=== PATIENT | female | born 1975 | race Caucasian/White ===

== ENCOUNTER → 2018-01-14 | Outpatient (CLI) | payer OTHER ==
--- NOTE | 2018-01-14 13:49 | US ---
EXAMINATION TYPE: US transvaginal DATE OF EXAM: 01/14/2018 COMPARISON: US 2015 CLINICAL HISTORY: N92.1 MENORRHAGIA WITH IRREG CYCLES. Irregular heavy painful cycles x 1 year, gravi da 3, para 2, miscarriage 1 TECHNIQUE: Transvaginal exam only per ordering physician. Date of LMP: 01/04/2018 EXAM MEASUREMENTS: Uterus: 9.1 x 4.2 x 4.8 cm Endometrial Stripe: 0.7 cm Right Ovary: not seen Left Ovary: not seen 1. Uterus: anteverted, heterogeneous with 1.2 x 0.8 x 1.2cm hypoechoic lesion posterior myometrium, probable fibroid 2. Endometrium: Within normal limits for patient's LMP 3. Right Ovary: not seen due to overlying peristalsing bowel 4. Left Ovary: not seen due to overlying bowel gas 5. Bilateral Adnexa: wnl 6. Posterior cul-de-sac: wnl Heterogeneous anteverted uterus with 1.2 cm lower body posterior subserosal hypoechoic lesion felt to reflect fibroid. IMPRESSION: Small 1.2 cm posterior peripheral fibroid.
== END ==
LOC: RADUSWWP 09:28
PROVIDERS: ATTEND Obstetrics & Gynecology
DX: D25.9 Leiomyoma of uterus, unspecified (principal)
CPT/HCPCS: 76830

== ENCOUNTER → 2018-02-04 | Outpatient (CLI) | payer OTHER ==
--- NOTE | 2018-02-09 14:16 | USB ---
Reason for exam: clinical finding. History: Family history of breast cancer in paternal grandmother at age 50. Benign stereotactic core biopsy of the left breast, 2016. Physical Findings: Nurse Summary: bilateral nodularity, all soft, movable (nurse ts). US Breast RT Right complete breast ultrasound includes all four quadrants, the retroareolar region and axilla. Finding demonstrates no cystic or solid lesion seen. These results were verbally communicated with the patient and result sheet given to the patient on 02/05/18. ASSESSMENT: Negative, BI-RAD 1 RECOMMENDATION: Routine screening mammogram of both breasts in 6 months. Back on schedule.
== END | disposition home or self-care (01) ==
LOC: RADUSWWP 08:55
PROVIDERS: ATTEND Obstetrics & Gynecology
DX: R92.8 Other abnormal and inconclusive findings on diagnostic imaging of breast (principal)

== ENCOUNTER → 2019-01-12 | Outpatient (CLI) | payer OTHER ==
--- NOTE | 2019-01-13 11:27 | MM ---
Reason for exam: screening (asymptomatic). Last mammogram was performed 1 year and 7 months ago. History: Family history of breast cancer in paternal grandmother at age 50. Benign stereotactic core biopsy of the left breast, 2016. Physical Findings: A clinical breast exam by your physician is recommended on an annual basis and results should be correlated with mammographic findings. MG 3D Screening Mammo W/Cad Bilateral CC and MLO view(s) were taken. Prior study comparison: June 25, 2017, mammogram. June 23, 2017, mammogram. The breast tissue is heterogeneously dense. This may lower the sensitivity of mammography. Finding: There is an questionable indistinct oval mass in the lower outer quadrant, anterior, subareolar position of the right breast. Previous mammotome biopsy in the left breast x 3. There is a chronic nodularity in the left breast. ASSESSMENT: Incomplete: need additional imaging evaluation, BI-RAD 0 RECOMMENDATION: Special view mammogram of the right breast. If lesion persists on supplemental views, image directed ultrasound is recommended. [facility] will attempt to contact patient to return for supplemental views and ultrasound if indicated.
== END | disposition home or self-care (01) ==
LOC: RADMAMWWP 11:12
PROVIDERS: ATTEND Obstetrics & Gynecology
DX: Z12.31 Encounter for screening mammogram for malignant neoplasm of breast (principal)
CPT/HCPCS: 77063; 77067

== ENCOUNTER → 2019-01-21 | Outpatient (CLI) | payer OTHER ==
--- NOTE | 2019-01-22 10:12 | MM ---
Reason for exam: additional evaluation requested from abnormal screening. Last mammogram was performed less than 1 month ago. History: Family history of breast cancer in paternal grandmother at age 50. Benign stereotactic core biopsy of the left breast, 2016. Physical Findings: Nurse did not find any significant physical abnormalities on exam. MG 3D Work Up W/Cad RT CC and spot compression LM view(s) were taken of the right breast. Prior study comparison: January 12, 2019, bilateral MG 3d screening mammo w/cad. June 25, 2017, mammogram. Nodular density persists. Ultrasound recommended. These results were verbally communicated with the patient and result sheet given to the patient on 01/21/19. ASSESSMENT: Incomplete: need additional imaging evaluation, BI-RAD 0 RECOMMENDATION: Ultrasound of the right breast.
--- NOTE | 2019-01-22 10:15 | USB ---
Reason for exam: additional evaluation requested from abnormal screening. History: Family history of breast cancer in paternal grandmother at age 50. Cyst aspiration of the left breast, 2016. Benign stereotactic core biopsy of the left breast, 2016. US Breast Workup Limited RT ight limited breast ultrasound including focal area of concern, retroareolar and axilla demonstrates a 12 x 5 x 8mm lobular, cystic cluster at 9 o'clock, a 7 x 2 x 7mm oval, mixed, hypoechoic lesion at 11 o'clock for which a biopsy is recommended and a 7 x 4 x 6mm oval, solid, hypoechoic lesion at the posterior nipple for which a biopsy is recommended. These results were verbally communicated with the patient and result sheet given to the patient on 01/21/19. ASSESSMENT: Suspicious, BI-RAD 4 RECOMMENDATION: Ultrasound core biopsy of the right breast. Called Dr. Gil's office with mammographic findings and has scheduled an appointment for the patient for 02/24/19 at 3:[address] Michel. Biopsy scheduled for 02/17/19 at 2:00. PRELIMINARY REPORT CALLED AND FAXED TO DR. MICHEL ON 01/22/19.
== END | disposition home or self-care (01) ==
LOC: RADMAMWWP 14:56
PROVIDERS: ATTEND Obstetrics & Gynecology
DX: R92.8 Other abnormal and inconclusive findings on diagnostic imaging of breast (principal); Z80.3 Family history of malignant neoplasm of breast
CPT/HCPCS: 77061; 77065

== ENCOUNTER → 2019-02-11 | Day surgery (SDC) | payer OTHER ==
[2019-02-11 11:39] VITALS: RESP 12; TEMP 98.4
[2019-02-11 12:55] VITALS: BP 128/85; PULSE 80
--- NOTE | 2019-02-11 13:14 | USB ---
EXAMINATION TYPE: US biopsy breast add'l VAD RT, US biopsy breast VAD RT, MG diagnostic mammo RT wo CAD DATE OF EXAM: 02/11/2019 CLINICAL HISTORY: R92.8 ABNORMAL MAMMOGRAM. TECHNIQUE: Ultrasound guided core biopsy of right breast at the 11:00 position and retroareolar regions . COMPARISON: NONE FINDINGS: The procedure of ultrasound guided core biopsy was explained to the patient. Benefits, alternatives, and risks were discussed. An informed consent was then obtained. The patient was placed in supine positioning for imaging and for the procedure. The overlying skin was prepped and draped in usual sterile fashion. Lidocaine buffered with bicarbonate was used as anesthetic into the skin and subcutaneous tissue up to area of concern in the right breast at the 11:00 position and retroareolar regions. Under ultrasound guidance, a 12-gauge vacuum assisted biopsy gun device was used to obtain 3 core samples from each site. Following this, a biopsy clip was left in each lesion. The patient tolerated the procedure well without any immediate complication. The patient was kept in the radiology department for short stay after the procedure and then discharged home in stable condition. IMPRESSION: Successful, uncomplicated ultrasound guided core biopsy of area of concern in the right breast at the 11:00 position and retroareolar regions, full pathology results to follow. Pathology Results: High Risk A. RIGHT BREAST, ELEVEN O'CLOCK, ULTRASOUND GUIDED CORE BIOPSY: Fibrocystic changes including cysts, fibrosis and apocrine metaplasia. B. RIGHT BREAST, POSTERIOR NIPPLE, CORE BIOPSY: Proliferative fibrocystic changes including radial scar/complex sclerosing lesion, moderate to florid usual type ductal hyperplasia and fibrosis. Recommendation Surgical consult of the right breast. KIRT
== END ==
LOC: RADUSWWP 11:18
PROVIDERS: ATTEND Surgery
DX: N60.11 Diffuse cystic mastopathy of right breast (principal); N60.81 Other benign mammary dysplasias of right breast
CPT/HCPCS: 88305; 77065; 19083; 19084; A4648; J2001

== ENCOUNTER 2019-04-09 07:50 | Day surgery (SDC) | payer OTHER ==
[2019-04-07 08:43] VITALS: BMI 28.3
[~2019-04-09 07:50] MED LIST: DEXAMETHASONE SOD PHOSPHATE 10 MG/ML 1 ML VIAL IV ONE; HEPARIN SODIUM,PORCINE 5,000 UNIT/ML 1 ML VIAL SQ ONE; HYDROmorphone 0.5 MG/0.5 ML SYRINGE IVP PRN; LACTATED RINGERS 1,000 ML IV SCH; MIDAZOLAM 2 MG/2 ML VIAL IV PRN; ONDANSETRON 4 MG/2 ML VIAL IVP ONE; Pre Op ABX Message 1 EACH MISC MISCELLANE ONE; SCOPOLAMINE 1.5MG/72HR PATCH TRANSDERM ONE
[2019-04-09 08:19] VITALS: RESP 16
--- NOTE | 2019-04-09 09:11 | P.GSHP ---
History of Present Illness H&P Date: 04/09/19 Chief Complaint: Abnormal right mammogram 43-year-old female known to our service. Please refer to recent H&P. Underwent recent ultrasound core biopsy of 2 separate lesions right breast. The one beneath the nipple showed radial scar/high risk lesion. Here today for wire localization biopsy. Past Medical History Past Medical History: GERD/Reflux Additional Past Medical History / Comment(s): MIGRAINE HEADACHE , GESTATIONAL DIABETES History of Any Multi-Drug Resistant Organisms: None Reported Past Surgical History: Breast Surgery, Orthopedic Surgery Additional Past Surgical History / Comment(s): left breast biopsy 3 sites, LEFT ARM SURGERY, Past Anesthesia/Blood Transfusion Reactions: Motion Sickness, Postoperative Nausea & Vomiting (PONV) Smoking Status: Former smoker - Past Family History Father Family Medical History: Cancer Additional Family Medical History / Comment(s): PROSTATE CANCER Mother Family Medical History: Cancer Medications and Allergies Home Medications Medication Instructions Recorded Confirmed Type ALPRAZolam [Xanax] 0.5 mg PO Q8H PRN 01/26/19 04/07/19 History Ibuprofen [Motrin] 400 mg PO DAILY PRN 01/26/19 04/07/19 History Allergies Allergy/AdvReac Type Severity Reaction Status Date / Time adhesive tape Allergy Itching Verified 04/09/19 08:13 AND REDNESS cephalexin [From Keflex] Allergy Swelling Verified 04/09/19 08:14 Penicillins Allergy Rash/Hives Verified 04/09/19 08:13 Surgical - Exam Vital Signs Temp Pulse Resp BP Pulse Ox 97.8 F 92 16 137/66 97 04/09/19 08:17 04/09/19 08:17 04/09/19 08:17 04/09/19 08:17 04/09/19 08:17 Physical exam: General: Well-developed, well-nourished HEENT: Normocephalic, sclerae nonicteric Right breast: No masses, no adenopathy Left breast: No masses, no adenopathy Abdomen: Nontender, nondistended Extremities: No edema Neuro: Alert and oriented Assessment and Plan (1) Abnormality of right breast on screening mammogram Narrative/Plan: Will proceed with wire localization biopsy right breast high risk lesion. Risks of bleeding, infection, scarring, numbness, dimpling reviewed. She understands and wishes to proceed. Current Visit: Yes Status: Acute Code(s): R92.8 - OTH ABN AND INCONCLUSIVE FINDINGS ON DX IMAGING OF BREAST SNOMED Code(s): 557137744
[2019-04-09] MEDS ORDERED: LIDOCAINE 1% INJ 10MG/ML (20 ML MDV) SQ ONE (09:32)
[2019-04-09] MEDS ORDERED: DEXAMETHASONE SOD PHOS (MDV) 100 MG/10 ML VIAL ONE (11:35)
[2019-04-09] MEDS ORDERED: MIDAZOLAM 2 MG/2 ML VIAL ONE (11:35)
[2019-04-09] MEDS ORDERED: LIDOCAINE 1% INJ 10MG/ML (20 ML MDV) ONE (11:35)
[2019-04-09] MEDS ORDERED: ONDANSETRON 4 MG/2 ML VIAL ONE (11:35)
[2019-04-09] MEDS ORDERED: KETAMINE 10 MG/ML 20 ML VIAL ONE (11:35)
[2019-04-09] MEDS ORDERED: fentaNYL (PF) 50 MCG/ML 2 ML AMP ONE (11:35)
[2019-04-09] MEDS ORDERED: PROPOFOL 10 MG/ML 20 ML VIAL IV ONE (11:35)
[2019-04-09] MEDS ORDERED: SODIUM CHLORIDE 0.9% 100 ML with CLINDAMYCIN 600 MG IV ONE ×2 (12:06)
[2019-04-09] MEDS ORDERED: BUPIVACAINE (PF) 0.25% 30 ML VIAL SQ ONE ×2 (12:13→12:27)
[2019-04-09] MEDS ORDERED: HYDROcodone/APAP 5-325MG 1 EACH TAB PO PRN (12:34)
[2019-04-09] MEDS ORDERED: NALOXONE 0.4 MG/ML 1 ML VIAL IV PRN (12:34)
--- NOTE | 2019-04-09 12:36 | P.OP ---
Date of Procedure: 04/09/19 Procedure(s) Performed: PREOPERATIVE DIAGNOSIS: Abnormal right mammogram POSTOPERATIVE DIAGNOSIS: Same PROCEDURE: Right Breast wire localization biopsy SURGEON: Marilu EBL: Minimal ANESTHESIA: Sedation plus local COMPLICATIONS: None OPERATIVE PROCEDURE: Patient was placed on the operating room table in the s upine position. The patient's breast was prepped and draped in usual sterile fashion. A curvilinear incision was made adjacent to the wire entrance site along the areola between 8 and 10:00. I followed the wire down into the breast tissue. The breast tissue around the tip of the wire was fully excised using electrocautery. The specimen was sent for specimen radiogram. The clip was present within the specimen. The subcutaneous tissues were inspected. No bleeding was seen. The subcutaneous tissues were closed using 3-0 Vicryl sutures. The skin was closed using a running 4-0 Monocryl stitch. Skin glue and sterile dressings were applied. DISPOSITION: Stable to recovery room
[2019-04-09 12:54] VITALS: TEMP 97.4
--- NOTE | 2019-04-09 13:15 | MM ---
EXAM: Needle localization with wire placement. CLINICAL HISTORY: High risk lesion on biopsy February 11, 2019 radial scar in the right breast TECHNIQUE: Needle localization with wire placement and surgical excision of area of concern in the right breast. COMPARISON: Prior mammogram and ultrasound February 11, 2019. FINDINGS: The procedure of needle localization with wire placement and than surgical excision was explained to the patient. Benefits, alternatives, and risks were discussed. An informed consent was then obtained. Case is reviewed prior to procedure, more anterior clip corresponds to the area of concern near the nipple. The shortest pathway for procedure was chosen. Shortest pathway was lateral approach. The overlying skin was prepped and draped in usual sterile fashion. Lidocaine buffered with bicarbonate was used as anesthetic into the skin and subcutaneous tissue up to the level of area of concern. A 5 cm needle was used. It was placed via a lateral approach under mammographic guidance. Subsequent 90 degrees mammogram show the needle to be in satisfactory position relative to the targeted area. At this point, wire was placed and the needle was withdrawn. The wire was fixed to patient's skin. Images were marked for surgeon. The patient tolerated the procedure well without any immediate complication. The patient was kept in the radiology department for short stay after the procedure and then taken to surgery for surgical excision. Targeted biopsy clip and wire are identified in specimen mammogram. The patient was kept in hospital for short stay after the procedure and then discharged home in stable condition. IMPRESSION: Successful, uncomplicated needle localization with wire placement and surgical excision of targeted biopsy clip in the right breast, full pathology results to follow. Pathology Results: Benign RIGHT BREAST, NEEDLE LOCALIZATION BIOPSY: Benign breast parechyma with fibrocystic spectrum changes and apocrine metaplasia. Recommendation Follow up mammogram of the right breast in 6 months. Radial scar may have been entirely excised on biopsy. MTDD
[2019-04-09] MEDS ORDERED: ONDANSETRON 4 MG/2 ML VIAL IVP ONE ×2 (13:37→13:38)
[2019-04-09] MEDS ORDERED: diphenhydrAMINE 50 MG/ML 1 ML VIAL IVP ONE (14:07)
[2019-04-09 14:28] VITALS: BP 106/67; PULSE 56
== END 2019-04-09 15:18 | disposition home or self-care (01) ==
LOC: OR 07:50
PROVIDERS: ATTEND Surgery
DX: N60.11 Diffuse cystic mastopathy of right breast (principal); N60.81 Other benign mammary dysplasias of right breast; K21.9 Gastro-esophageal reflux disease without esophagitis; G43.909 Migraine, unspecified, not intractable, without status migrainosus; F41.9 Anxiety disorder, unspecified; Z86.32 Personal history of gestational diabetes; Z98.890 Other specified postprocedural states; Z87.898 Personal history of other specified conditions; Z91.89 Other specified personal risk factors, not elsewhere classified; Z87.891 Personal history of nicotine dependence; Z91.048 Other nonmedicinal substance allergy status; Z88.1 Allergy status to other antibiotic agents; Z88.0 Allergy status to penicillin; Z79.899 Other long term (current) drug therapy; Z80.42 Family history of malignant neoplasm of prostate; Z80.9 Family history of malignant neoplasm, unspecified
CPT/HCPCS: 81025; 88307; 76098; 19281; 19125; J2250; J1200; J1644; J2405; J2001; J3010; J1100; J2704; J1170

== ENCOUNTER → 2019-10-22 | Outpatient (CLI) | payer OTHER ==
--- NOTE | 2019-10-22 11:51 | MM ---
Reason for exam: follow-up at short interval from prior study. Last mammogram was performed 8 months ago. History: Patient has history of high-risk lesion on a previous biopsy at age 43. Family history of breast cancer in paternal grandmother at age 50. Benign MG pre op needle loc RT of the right breast, April 09, 2019. High risk US biopsy breast VAD RT of the right breast, February 11, 2019. High risk US biopsy breast add'l VAD RT of the right breast, February 11, 2019. Cyst aspiration of the left breast, 2016. Benign stereotactic core biopsy of the left breast, 2016. Took hormonal contraceptives beginning at age 30. Physical Findings: Nurse did not find any significant physical abnormalities on exam. MG 3D Diag Mammo W/Cad RT CC and MLO view(s) were taken of the right breast. Prior study comparison: February 11, 2019, right breast MG diagnostic mammo RT wo CAD. January 21, 2019, right breast MG 3d work up w/cad RT. There are scattered fibroglandular densities. Previous mammotome biopsy in the right breast. No significant new findings when compared with previous films. These results were verbally communicated with the patient and result sheet given to the patient on 10/22/19. ASSESSMENT: Benign, BI-RAD 2 RECOMMENDATION: Return to routine screening mammogram schedule for both breasts.
== END | disposition home or self-care (01) ==
LOC: RADMAMWWP 10:48
PROVIDERS: ATTEND Surgery
DX: R92.8 Other abnormal and inconclusive findings on diagnostic imaging of breast (principal)
CPT/HCPCS: 77061; 77065

== ENCOUNTER → 2020-03-21 | Outpatient (CLI) | payer OTHER ==
--- NOTE | 2020-03-22 11:56 | MM ---
Reason for exam: screening (asymptomatic). Last mammogram was performed 5 months ago. History: Patient has history of high-risk lesion on a previous biopsy at age 43. Family history of breast cancer in paternal grandmother at age 50. Benign MG pre op needle loc RT of the right breast, April 09, 2019. High risk US biopsy breast VAD RT of the right breast, February 11, 2019. High risk US biopsy breast add'l VAD RT of the right breast, February 11, 2019. Cyst aspiration of the left breast, 2016. Benign stereotactic core biopsy of the left breast, 2016. Took hormonal contraceptives beginning at age 30. Physical Findings: A clinical breast exam by your physician is recommended on an annual basis and results should be correlated with mammographic findings. MG 3D Screening Mammo W/Cad Bilateral CC and MLO view(s) were taken. Prior study comparison: October 22, 2019, right breast MG 3d diag mammo w/cad RT. February 11, 2019, right breast MG diagnostic mammo RT wo CAD. The breast tissue is heterogeneously dense. This may lower the sensitivity of mammography. Previous mammotome biopsy in the right breast. There is chronic nodularity bilaterally. There is no dominant lesion. No significant changes when compared with prior studies. ASSESSMENT: Benign, BI-RAD 2 RECOMMENDATION: Routine screening mammogram of both breasts in 1 year.
== END | disposition home or self-care (01) ==
LOC: RADMAMWWP 14:26
PROVIDERS: ATTEND Obstetrics & Gynecology
DX: Z12.31 Encounter for screening mammogram for malignant neoplasm of breast (principal)
CPT/HCPCS: 77063; 77067

== ENCOUNTER → 2021-02-07 | Outpatient (CLI) | payer OTHER ==
--- NOTE | 2021-02-07 12:34 | US ---
EXAMINATION TYPE: US pelvis complete transvag DATE OF EXAM: 02/07/2021 COMPARISON: 01/14/2018 CLINICAL HISTORY: 45-year-old female N93.8 abnormal uterine and vaginal bleeding. Irregular bleeding TECHNIQUE: Transvaginal (TV) and Transabdominal (TA) . Transabdominal sonographic images of the pel vis were acquired. Transvaginal sonographic images were medically necessary to better assess the fol lowing anatomy: Endometrium Date of LMP: 01/29/2021, FINDINGS: EXAM MEASUREMENTS: Uterus: 8.1 x 5.0 x 4.4 cm Endometrial Stripe: 0.2 cm Right Ovary: 2.2 x 1.5 x 1.4 cm Left Ovary: 2.7 x 1.6 x 2.3 cm 1. Uterus: Anteverted. The myometrium is heterogeneous. Posterior body fibroid measuring 1.4 x 1.1 x 1.3 cm appears slightly subserosal. Subtle 1.2 cm hypoechoic area along the anterior uterine body/ lower uterine segment appears primarily intramural with a small subserosal component. Cervical naboth ildefonso cyst measures up to 1.2 cm. 2. Endometrium: wnl 3. Right Ovary: wnl 4. Left Ovary: wnl 5. Bilateral Adnexa: no free fluid 6. Posterior cul-de-sac: no free fluid IMPRESSION: 1. Thin endometrial stripe at 2 mm. 2. A couple uterine fibroids with subserosal components measuring 1.4 cm posteriorly and 1.2 cm anter iorly.
== END | disposition home or self-care (01) ==
LOC: RADUSWWP 09:22
PROVIDERS: ATTEND Obstetrics & Gynecology
DX: D25.9 Leiomyoma of uterus, unspecified (principal)
CPT/HCPCS: 76830; 76856

== ENCOUNTER → 2021-08-08 | Outpatient (CLI) | payer OTHER ==
--- NOTE | 2021-08-10 12:57 | MM ---
Reason for exam: screening (asymptomatic). Last mammogram was performed 1 year and 5 months ago. History: Patient has history of high-risk lesion on a previous biopsy at age 43. Family history of breast cancer in paternal grandmother at age 50. Benign MG pre op needle loc RT of the right breast, April 09, 2019. High risk US biopsy breast VAD RT of the right breast, February 11, 2019. High risk US biopsy breast add'l VAD RT of the right breast, February 11, 2019. Cyst aspiration of the left breast, 2016. Benign stereotactic core biopsy of the left breast, 2016. Took hormonal contraceptives beginning at age 30. Physical Findings: A clinical breast exam by your physician is recommended on an annual basis and results should be correlated with mammographic findings. MG 3D Screening Mammo W/Cad Bilateral CC and MLO view(s) were taken. Prior study comparison: March 21, 2020, bilateral MG 3d screening mammo w/cad. October 22, 2019, right breast MG 3d diag mammo w/cad RT. The breast tissue is heterogeneously dense. This may lower the sensitivity of mammography. Previous mammotome biopsy in the right breast and in the left breast x 2. New nodule 8 o'clock anterior left breast. Unchanged asymmetric densities left breast. ASSESSMENT: Incomplete: need additional imaging evaluation, BI-RAD 0 RECOMMENDATION: Special view mammogram and ultrasound of the left breast. (3D) [facility] will attempt to contact patient to return for supplemental views and ultrasound.
== END | disposition home or self-care (01) ==
LOC: RADMAMWWP 14:25
PROVIDERS: ATTEND Obstetrics & Gynecology
DX: Z12.31 Encounter for screening mammogram for malignant neoplasm of breast (principal); Z80.3 Family history of malignant neoplasm of breast
CPT/HCPCS: 77063; 77067

== ENCOUNTER → 2021-08-22 | Outpatient (CLI) | payer OTHER ==
--- NOTE | 2021-08-22 14:22 | USB ---
Reason for Exam: Clinical finding. Additional evaluation requested from abnormal screening. Last screening mammogram was performed less than 1 month ago. Patient History: Menarche at age 13. First Full-Term at age 29. Hormonal Contraceptives, from age 30 until age 32. 2016, Benign Stereotactic Core Biopsy on the left side. 2016, Cyst Aspiration on the Left side. 04/09/2019, Benign Core Biopsy on the right side. 02/11/2019, High risk Core Biopsy on the right side. 02/11/2019, High risk Core Biopsy on the right side. Paternal grandmother had breast cancer, age 50. Last menstrual period: 08/03/2021 Risk Values: Yolande 5 year model risk: 2.4%. NCI Lifetime model risk: 16.4%. Prior Study Comparison: 10/22/2019 Right Diagnostic Mammogram, [facility]. 03/21/2020 Bilateral Screening Mammogram, [facility]. 08/08/2021 Bilateral Screening Mammogram, [facility]. Tissue Density: Left: There are scattered fibroglandular densities. Findings: Analyzed By CAD. Mammogram There is persistence of a oval density inferior to the nipple the anterior left breast. Small cysts are identified on ultrasound.. Technique: Method: Targeted. Findings: The periareolar of the left breast and the retroareolar of the left breast were scanned. There are hypoechoic areas within the left anterior breast. At the 7:00 position this measures 0.4 x 0.3 x 0.4 cm. And may correspond to the mammogram. At the 12:00 position this measures 0.4 x 0.5 x 0.4 cm. Overall Assessment: Probably benign, BI-RAD 3 Assessment: MG 3D work up w/cad LT - Left: Probably benign, BI-RAD 3. US breast workup limited LT - Left: Probably benign, BI-RAD 3. Management: Diagnostic Mammogram of the left breast in 6 months. A clinical breast exam by your physician is recommended on an annual basis and results should be correlated with mammographic findings. Results were given to the patient verbally at the time of exam. Electronically signed and approved by: Emmanuel Cook D.O. Radiologis
--- NOTE | 2021-09-04 07:11 | MM ---
Reason for Exam: Clinical finding. Additional evaluation requested from abnormal screening. Last screening mammogram was performed less than 1 month ago. Patient History: Menarche at age 13. First Full-Term at age 29. Hormonal Contraceptives, from age 30 until age 32. 2016, Benign Stereotactic Core Biopsy on the left side. 2016, Cyst Aspiration on the Left side. 04/09/2019, Benign Core Biopsy on the right side. 02/11/2019, High risk Core Biopsy on the right side. 02/11/2019, High risk Core Biopsy on the right side. Paternal grandmother had breast cancer, age 50. Last menstrual period: 08/03/2021 Risk Values: Yolande 5 year model risk: 2.4%. NCI Lifetime model risk: 16.4%. Prior Study Comparison: 10/22/2019 Right Diagnostic Mammogram, [facility]. 03/21/2020 Bilateral Screening Mammogram, [facility]. 08/08/2021 Bilateral Screening Mammogram, [facility]. Tissue Density: Left: There are scattered fibroglandular densities. Findings: Analyzed By CAD. Mammogram There is persistence of a oval density inferior to the nipple the anterior left breast. Small cysts are identified on ultrasound.. Technique: Method: Targeted. Findings: The periareolar of the left breast and the retroareolar of the left breast were scanned. There are hypoechoic areas within the left anterior breast. At the 7:00 position this measures 0.4 x 0.3 x 0.4 cm. And may correspond to the mammogram. At the 12:00 position this measures 0.4 x 0.5 x 0.4 cm. Overall Assessment: Probably benign, BI-RAD 3 Assessment: MG 3D work up w/cad LT - Left: Probably benign, BI-RAD 3. US breast workup limited LT - Left: Probably benign, BI-RAD 3. Management: Diagnostic Mammogram of the left breast in 6 months. A clinical breast exam by your physician is recommended on an annual basis and results should be correlated with mammographic findings. Results were given to the patient verbally at the time of exam. Electronically signed and approved by: Emmanuel Cook D.O. Radiologis
== END | disposition home or self-care (01) ==
LOC: RADMAMWWP 13:31
PROVIDERS: ATTEND Obstetrics & Gynecology
DX: R92.8 Other abnormal and inconclusive findings on diagnostic imaging of breast (principal); N60.02 Solitary cyst of left breast; Z80.3 Family history of malignant neoplasm of breast
CPT/HCPCS: 77061; 77065

== ENCOUNTER → 2022-02-28 | Outpatient (CLI) | payer OTHER ==
--- NOTE | 2022-02-28 08:53 | MM ---
Reason for Exam: Follow-up at short interval from prior study. Last screening mammogram was performed 7 month(s) ago. Patient History: Menarche at age 13. First Full-Term at age 29. Hormonal Contraceptives, from age 30 until age 32. 2016, Benign Stereotactic Core Biopsy on the left side. 2016, Cyst Aspiration on the Left side. 04/09/2019, Benign Core Biopsy on the right side. 02/11/2019, High risk Core Biopsy on the right side. 02/11/2019, High risk Core Biopsy on the right side. Paternal grandmother had breast cancer, age 50. Last menstrual period: 01/30/2022 Risk Values: Yolande 5 year model risk: 2.3%. NCI Lifetime model risk: 16.0%. Prior Study Comparison: 03/21/2020 Bilateral Screening Mammogram, [facility]. 08/08/2021 Bilateral Screening Mammogram, [facility]. 08/22/2021 Left MG 3D work up w/cad LT, [facility]. Tissue Density: Left: There are scattered fibroglandular densities. Findings: Analyzed By CAD. Areas of asymmetric density are unchanged. 3 microclip from prior biopsies. The previous medial nodularity has improved. No significant change from prior exams. Overall Assessment: Benign, BI-RAD 2 Management: Screening Mammogram of both breasts in 6 months. 1. Patient should continue monthly self breast exams. 2. A clinical breast exam by your physician is recommended on an annual basis. 3. This exam should not preclude additional follow-up of suspicious palpable abnormalities. Results were given to the patient verbally at the time of exam. Electronically signed and approved by: Falguni De Guzman M.D. Radiologist
== END | disposition home or self-care (01) ==
LOC: RADMAMWWP 08:10
PROVIDERS: ATTEND Surgery
DX: R92.8 Other abnormal and inconclusive findings on diagnostic imaging of breast (principal); Z80.3 Family history of malignant neoplasm of breast
CPT/HCPCS: 77061; 77065

== ENCOUNTER → 2022-09-09 | Outpatient (CLI) | payer OTHER ==
--- NOTE | 2022-09-10 17:22 | MM ---
Reason for Exam: Screening (asymptomatic). Last mammogram was performed 1 year(s) and 1 month(s) ago. Patient History: Menarche at age 13. First Full-Term at age 29. Hormonal Contraceptives, from age 30 until age 32. 2016, Benign Stereotactic Core Biopsy on the left side. 2016, Cyst Aspiration on the Left side. 04/09/2019, Benign Core Biopsy on the right side. 02/11/2019, High risk Core Biopsy on the right side. 02/11/2019, High risk Core Biopsy on the right side. Paternal grandmother had breast cancer, age 50. Last menstrual period: 08/07/2022 Risk Values: Yolande 5 year model risk: 2.3%. NCI Lifetime model risk: 16.0%. Prior Study Comparison: 08/08/2021 Bilateral Screening Mammogram, [facility]. 08/22/2021 Left MG 3D work up w/cad LT, [facility]. 02/28/2022 Left MG 3D diag mammo w/cad LT, [facility]. Tissue Density: The breast tissue is almost entirely fat. Findings: Analyzed By CAD. 3 microclips in the left breast and one microclip in the right breast from prior biopsies. There is no suspicious group of microcalcifications or new suspicious mass in either breast. Overall Assessment: Benign, BI-RAD 2 Management: Screening Mammogram of both breasts in 1 year. . Patient should continue monthly self-breast exams. A clinical breast exam by your physician is recommended on an annual basis. This exam should not preclude additional follow-up of suspicious palpable abnormalities. Note on Yolande scores and lifetime risk: 1. A Yolande score greater than 3% is considered moderate risk. If this is the case, consider specialist referral to assess eligibility for a risk reducing agent. 2. If overall lifetime risk for the development of breast cancer is 20% or higher, the patient may qualify for future screening with alternating mammogram and breast MRI. Electronically signed and approved by: Falguni De Guzman M.D. Radiologist
== END | disposition home or self-care (01) ==
LOC: RADMAMWWP 14:52
PROVIDERS: ATTEND Surgery
DX: Z12.31 Encounter for screening mammogram for malignant neoplasm of breast (principal); Z80.3 Family history of malignant neoplasm of breast
CPT/HCPCS: 77063; 77067

== ENCOUNTER 2022-09-28 11:19 | Emergency (ER) | payer OTHER ==
[2022-09-28 11:25] VITALS: RESP 18; TEMP 97.9
[2022-09-28] MEDS ORDERED: KETOROLAC 15 MG/ML 1 ML VIAL IM STA (11:52)
[2022-09-28] MEDS ORDERED: diazePAM 2 MG TAB PO STA (11:52)
--- NOTE | 2022-09-28 12:03 | ED ---
Back Pain HPI - General Chief Complaint: Back Pain/Injury Stated Complaint: back pain,Left hand numbness Time Seen by Provider: 09/28/22 11:30 Source: patient, RN notes reviewed Mode of arrival: ambulatory Limitations: no limitations - History of Present Illness Initial Comments: This is a 46-year-old female who presents to the emergency department for upper back pain and tingling in the left upper extremity. States that the symptoms started yesterday. She's had back pain before but has not had problems with tingling in the extremities. Denies any injuries. Pain is worse with movement. She has not taken anything to treat her symptoms. Denies any chest pain or shortness of breath. Denies any fevers, chills, sore throat, cough, dyspnea, chest pain, palpitations, abdominal pain, nausea, vomiting, diarrhea, or headaches. MD Complaint: back pain - Related Data Home Medications Medication Instructions Recorded Confirmed ALPRAZolam [Xanax] 0.5 mg PO Q8H PRN 01/26/19 04/07/19 Ibuprofen [Motrin] 400 mg PO DAILY PRN 01/26/19 04/07/19 Previous Rx's Medication Instructions Recorded Hydrocodone/Acetaminophen [[place] 1 tab PO Q6HR PRN 3 Days #5 tab 04/09/19 5-325] Ketorolac [Toradol] 10 mg PO Q6HR PRN #12 tab 09/28/22 diazePAM [Valium] 5 mg PO Q8HR PRN 3 Days #9 tab 09/28/22 Allergies Allergy/AdvReac Type Severity Reaction Status Date / Time adhesive tape Allergy Itching Verified 09/28/22 11:25 AND REDNESS cephalexin [From Keflex] Allergy Swelling Verified 09/28/22 11:25 Penicillins Allergy Rash/Hives Verified 09/28/22 11:25 Review of Systems ROS Statement: Those systems with pertinent positive or pertinent negative responses have been documented in the HPI. ROS Other: All systems not noted in ROS Statement are negative. Past Medical History Past Medical History: GERD/Reflux Additional Past Medical History / Comment(s): MIGRAINE HEADACHE , GESTATIONAL DIABETES History of Any Multi-Drug Resistant Organisms: None Reported Past Surgical History: Breast Surgery, Orthopedic Surgery Additional Past Surgical History / Comment(s): left breast biopsy 3 sites, LEFT ARM SURGERY, Past Anesthesia/Blood Transfusion Reactions: Motion Sickness, Postoperative Nausea & Vomiting (PONV) Past Psychological History: Anxiety, Depression Smoking Status: Never smoker Past Alcohol Use History: Occasional Past Drug Use History: None Reported - Past Family History Father Family Medical History: Cancer Additional Family Medical History / Comment(s): PROSTATE CANCER Mother Family Medical History: Cancer General Exam Limitations: no limitations General appearance: alert, in no apparent distress Head exam: Present: atraumatic, normocephalic, normal inspection Neck exam: Present: full ROM, other (Positive Spurling's test) Respiratory exam: Present: normal lung sounds bilaterally. Absent: respiratory distress, wheezes, rales, rhonchi, stridor Cardiovascular Exam: Present: regular rate, normal rhythm, normal heart sounds. Absent: systolic murmur, diastolic murmur, rubs, gallop, clicks Back exam: Present: normal inspection, full ROM, other (Tenderness to palpation over the left trapezius muscle) Neurological exam: Present: alert, oriented X3, CN II-XII intact Psychiatric exam: Present: normal affect, normal mood Skin exam: Present: warm, dry, intact, normal color. Absent: rash Course Vital Signs 09/28/22 09/28/22 09/28/22 11:22 12:34 14:08 Temperature 97.9 F Pulse Rate 90 67 60 Respiratory 18 18 18 Rate Blood Pressure 133/88 122/78 118/84 O2 Sat by Pulse 99 97 97 Oximetry Medical Decision Making - Medical Decision Making This is a 46-year-old female who presents to the emergency department for back pain. Was pt. sent in by a medical professional or institution? @ -No Did you speak to anyone other than the patient for history? @ -No Did you review nursing and triage notes? @ -Yes, and I agree, it is accurate with regards to the patient's symptoms. Were old charts reviewed? @ -No Differential Diagnosis? @ -Differential Back Pain: Strain, zoster, cauda equina syndrome, epidural abscess, vertebral osteomyelitis, discitis, fracture, subluxation, disc herniation, DJD, spinal stenosis, dissection, AAA, pancreatitis, peptic ulcer disease, pyelonephritis, kidney stone, this is not meant to be an all-inclusive list. EKG interpreted by me (3pts min.)? @ -EKG interpreted by me demonstrating the following: Sinus rhythm. Ventricular rate 76 bpm, MD interval 110 ms, QRS duration 91 ms, QTC 392 ms. X-rays interpreted by me (1pt min.)? @ -X-ray of the cervical and thoracic spine obtained. My interpretation identifies no acute fractures. CT interpreted by me (1pt min.)? @ -Not obtained U/S interpreted by me (1pt. min.)? @ -Not obtained What testing was considered but not performed? (CT, X-rays, U/S, labs)? Why? @ -None What meds were considered but not given? Why? @ -None Did you discuss the management of the patient with other professionals? @ -No Did you reconcile home meds? @ -No Was smoking cessation discussed for >3mins.? @ -No Was critical care preformed (if so, how long)? @ -No Were there social determinants of health that impacted care today? How? (Homelessness, low income, unemployed, alcoholism, drug addiction, transportation, low edu. Level, literacy, decrease access to med. care, fci, rehab)? @ -No Was there de-escalation of care discussed even if they declined? (Discuss DNR or withdrawal of care, Hospice)? @ -No What co-morbidities impacted this encounter? (DM, HTN, Smoking, COPD, CAD, Cancer, CVA, Hep., AIDS, mental health diagnosis, sleep apnea, morbid obesity)? @ -None Was patient admitted / discharged? @ -Discharged. X-ray of the cervical and thoracic spine obtained revealing no acute fractures. They did note a mild kyphosis which they state could be related to positioning or a muscle spasm. Findings discussed with the patient. She was given Toradol and low-dose Valium, which she states was very effective. Given that she had a positive Spurling's test, the pain was reproducible, and she had improvement with medications, advised that this is most likely related to a strain or other musculoskeletal process. Prescription for Toradol and Valium provided with dosing instructions reviewed. Patient is instructed to take the Toradol with Tylenol if needed and avoid any other [id number] anti-inflammatories such as ibuprofen with the Toradol. Advised to start with a half tablet of the Valium and use it sparingly. Reminded her that this is sedating and she should avoid driving or operating machinery when taking this. Otherwise advised her to follow-up with her PCP. Undiagnosed new problem with uncertain prognosis? @ -None Drug Therapy requiring intensive monitoring for toxicity (Heparin, Nitro, Insulin, Cardizem)? @ -None Were any procedures done? @ -None Diagnosis/symptom? @ -Cervical strain Acute, or Chronic, or Acute on Chronic? @ -Acute Uncomplicated (without systemic symptoms) or Complicated (systemic symptoms)? @ -Uncomplicated Side effects of treatment? @ -None Exacerbation, Progression, or Severe Exacerbation] @ -Not applicable Poses a threat to life or bodily function? @ -No Return precautions reviewed in depth, the patient is instructed to return to the emergency department with any new, worsening, or concerning symptoms. Patient verbalized understanding. This case was discussed in detail with the attending ED physician, Dr. Reeder. Presentation, findings, and treatment plan discussed in detail as well. - Radiology Data Radiology results: report reviewed, image reviewed Disposition Clinical Impression: Cervical muscle strain Disposition: HOME SELF-CARE Instructions (If sedation given, give patient instructions): Cervical Strain (ED), Muscle Strain (ED) Additional Instructions: Return to the emergency department with any new, worsening, or concerning symptoms. Take the Toradol with Tylenol as needed for pain relief. Do not take this with other anti-inflammatories such as ibuprofen. Try taking half a tablet of the Valium to start and increase to a full tablet if needed for pain/spasms. Follow up with your primary care provider in 1-2 days. Prescriptions: Ketorolac [Toradol] 10 mg PO Q6HR PRN #12 tab PRN Reason: Pain diazePAM [Valium] 5 mg PO Q8HR PRN 3 Days #9 tab PRN Reason: Pain Is patient prescribed a controlled substance at d/c from ED?: Yes When asked, does pt state using other controlled substances?: No If prescribed controlled substance>3 days was MAPS reviewed?: Prescribed <3 Days Referrals: Marvel Chicas MD [Primary Care Provider] - 1-2 days
--- NOTE | 2022-09-28 13:28 | XR ---
EXAMINATION TYPE: XR thoracic spine complete DATE OF EXAM: 09/28/2022 COMPARISON: None HISTORY: Pain TECHNIQUE: 3 view thoracic spine FINDINGS: There are 12 thoracic type vertebral bodies. Pedicles are intact. There is mild scarring S scoliosis present within the thoracic spine. Vertebral body heights are preserved. Disc heights are p reserved. IMPRESSION: 1. No acute osseous abnormality thoracic spine. 2. Mild Scoliosis
--- NOTE | 2022-09-28 13:30 | XR ---
EXAMINATION TYPE: XR cervical spine comp DATE OF EXAM: 09/28/2022 COMPARISON: None HISTORY: Pain TECHNIQUE: 5 view cervical spine FINDINGS: There is straightening of the cervical spine. Some subtle kyphosis centered at C4 may be pr esent. Posterior spinal lamellar line is intact. Prevertebral space is normal. Foramen are patent. Od ontoid has some limitation with overlying occiput. Vertebral body heights appear preserved. Disc heig hts are preserved. IMPRESSION: 1. No acute osseous abnormality cervical spine. 2. Mild kyphosis. This can be related to patient positioning or muscle spasm.
[2022-09-28 14:09] VITALS: BP 118/84; PULSE 60
== END 2022-09-28 14:16 | disposition home or self-care (01) ==
LOC: EC 11:19
DX: S16.1XXA Strain of muscle, fascia and tendon at neck level, initial encounter (principal); M40.202 Unspecified kyphosis, cervical region; F41.9 Anxiety disorder, unspecified; F32.A Depression, unspecified; Z79.899 Other long term (current) drug therapy; Z88.0 Allergy status to penicillin; Z91.09 Other allergy status, other than to drugs and biological substances; X58.XXXA Exposure to other specified factors, initial encounter
CPT/HCPCS: 72072; 72050; 99284; 96372; J1885

== ENCOUNTER → 2023-01-16 | Outpatient (CLI) | payer OTHER ==
[2023-01-17 05:30] LABS: T4, Free (Free Thyroxine) 0.98 ng/dL (0.80-1.80)
== END | disposition home or self-care (01) ==
LOC: LABWHC1 15:37
PROVIDERS: ATTEND Family Medicine
DX: R53.81 Other malaise (principal)
CPT/HCPCS: 36415; 82306; 84439; 84443; 84481

== ENCOUNTER → 2023-09-11 | Outpatient (CLI) | payer OTHER ==
--- NOTE | 2023-09-12 11:58 | MM ---
Reason for Exam: High risk patient. Last screening mammogram was performed 12 month(s) ago. Patient History: Menarche at age 13. First Full-Term at age 29. Perimenopausal. Patient has history of breast feeding. Hormonal Contraceptives, from age 30 until age 32. 2016, Benign Stereotactic Core Biopsy on the left side. 2016, Cyst Aspiration on the Left side. 04/09/2019, Benign Core Biopsy on the right side. 02/11/2019, High risk Core Biopsy on the right side. 02/11/2019, High risk Core Biopsy on the right side. Paternal grandmother had breast cancer, age 50. Risk Values: Yolande 5 year model risk: 2.1%. NCI Lifetime model risk: 15.6%. Prior Study Comparison: 02/11/2019 Right Diagnostic Mammogram, [facility]. 10/22/2019 Right Diagnostic Mammogram, [facility]. 03/21/2020 Bilateral Screening Mammogram, [facility]. 08/08/2021 Bilateral Screening Mammogram, [facility]. 08/22/2021 Left MG 3D work up w/cad LT, [facility]. 02/28/2022 Left MG 3D diag mammo w/cad LT, [facility]. 09/09/2022 Bilateral MG 3D screening mammo w/cad, [facility]. Tissue Density: There are scattered areas of fibroglandular density. Findings: Analyzed By CAD. There is no suspicious group of microcalcifications or new suspicious mass in either breast. Postsurgical changes involving bilateral breast. Overall Assessment: Benign, BI-RAD 2 Management: Screening Mammogram of both breasts in 1 year. . Patient should continue monthly self-breast exams. A clinical breast exam by your physician is recommended on an annual basis. This exam should not preclude additional follow-up of suspicious palpable abnormalities. Note on Yolande scores and lifetime risk: 1. A Yolande score greater than 3% is considered moderate risk. If this is the case, consider specialist referral to assess eligibility for a risk reducing agent. 2. If overall lifetime risk for the development of breast cancer is 20% or higher, the patient may qualify for future screening with alternating mammogram and breast MRI. Electronically signed and approved by: Mak Falcon M.D. Radiologis
== END | disposition home or self-care (01) ==
LOC: RADMAMWWP 08:14
PROVIDERS: ATTEND Family Medicine
DX: Z12.31 Encounter for screening mammogram for malignant neoplasm of breast (principal); Z80.3 Family history of malignant neoplasm of breast
CPT/HCPCS: 77063; 77067

== ENCOUNTER → 2024-05-28 | Outpatient (CLI) | payer BC, OTHER ==
--- NOTE | 2024-05-28 16:26 | US ---
EXAMINATION TYPE: US mass soft tissue chest/back DATE OF EXAM: 05/28/2024 COMPARISON: NONE CLINICAL INDICATION: Female, 48 years old with history of R22.2 LOCALIZED SWELLING, MASS AND LUMP, TR UNK; Patient states she has felt this area mid right back. TECHNIQUE: Sonographic images taken. FINDINGS/IMPRESSION: Area of concern scanned. Contralateral images taken. Superficial area seen measuring 3.0 x 3.4 x 0.8 cm. No internal color flow identified. Seems marginal ly more prominent than the contralateral side but similar morphology. This is nonspecific. Recommend further evaluation with CT with/without IV contrast. [facility], , 05/28/2024 4:24 PM
== END | disposition home or self-care (01) ==
LOC: RADUSWWP 15:51
PROVIDERS: ATTEND Surgery Plastic and Reconstructive Surgery
DX: R22.2 Localized swelling, mass and lump, trunk (principal)

== ENCOUNTER → 2024-09-28 | Outpatient (CLI) | payer BC, OTHER ==
--- NOTE | 2024-09-28 11:27 | MM ---
Reason for Exam: Screening (asymptomatic). Last mammogram was performed 1 year(s) and 1 month(s) ago. Patient History: Menarche at age 13. First Full-Term at age 29. Perimenopausal. Patient has history of breast feeding. Hormonal Contraceptives, from age 30 until age 32. 2016, Benign Stereotactic Core Biopsy on the left side. 2016, Cyst Aspiration on the Left side. 04/09/2019, Benign Core Biopsy on the right side. 02/11/2019, High risk Core Biopsy on the right side. 02/11/2019, High risk Core Biopsy on the right side. Paternal grandmother had breast cancer, age 50. Risk Values: Yolande 5 year model risk: 1.9%. NCI Lifetime model risk: 15.3%. Prior Study Comparison: 02/28/2022 Left MG 3D diag mammo w/cad , [facility]. 09/09/2022 Bilateral MG 3D screening mammo w/cad, [facility]. 09/11/2023 Bilateral MG 3D screening mammo w/cad, [facility]. Tissue Density: There are scattered areas of fibroglandular density. Findings: Analyzed By CAD. 3 microclips left breast and one microclip right breast from prior biopsies. There is no suspicious group of microcalcifications or new suspicious mass in either breast. Overall Assessment: Negative, BI-RAD 1 Management: Screening Mammogram of both breasts. Patient should continue monthly self-breast exams. A clinical breast exam by your physician is recommended on an annual basis. This exam should not preclude additional follow-up of suspicious palpable abnormalities. Note on Yolande scores and lifetime risk: 1. A Yolande score greater than 3% is considered moderate risk. If this is the case, consider specialist referral to assess eligibility for a risk reducing agent. 2. If overall lifetime risk for the development of breast cancer is 20% or higher, the patient may qualify for future screening with alternating mammogram and breast MRI. [facility], , 09/28/2024 11:24 AM. Electronically signed and approved by: Falguni De Guzman M.D. Radiologist
== END | disposition home or self-care (01) ==
LOC: RADMAMWWP 08:38
PROVIDERS: ATTEND Obstetrics & Gynecology
DX: Z12.31 Encounter for screening mammogram for malignant neoplasm of breast (principal); R92.323 Mammographic fibroglandular density, bilateral breasts; Z80.3 Family history of malignant neoplasm of breast; Z92.0 Personal history of contraception
CPT/HCPCS: 77063; 77067